=== PATIENT | female | born 1970 ===

== ENCOUNTER 2021-03-31 14:53 | Emergency (ER) | payer MEDICAID, OTHER ==
[~2021-03-31] VITALS: Ht 165.1 cm; Wt 90.7 kg
[2021-03-31 14:54] VITALS: BP 114/64
== END 2021-03-31 15:02 | disposition left against medical advice (07) ==
LOC: ER 14:53
DX: R07.89 Other chest pain (principal); Z53.21 Procedure and treatment not carried out due to patient leaving prior to being seen by health care provider